=== PATIENT | male | born 1955 | race Caucasian/White ===

== ENCOUNTER 2016-06-24 06:06 | Emergency (ER) | payer MEDICAID ==
--- NOTE | 2016-06-24 08:04 | ER NURSING DOCUMENTATION ---
Nurse's Notes [facility] Name:Sushil Jensen Age:61 yrs Sex:Male :1955 Arrival Date:06/24/2016 Time:06:06 Bed1 Private MD: Diagnosis:Acute Back Pain Presentation: 06/24 06:23 Presenting complaint: Patient states: pt wants dressing change from back surgery 2 days lb ago. Transition of care: Home. Notified ED Physician of Dr. Cadena notified. 06:23 Acuity: WHITNEY 5 lb 06:23 Method Of Arrival: Walk In Triage Assessment: 06:28 General: Appears in no apparent distress, Behavior is appropriate for age. Pain: Denies lb pain. Historical: - Allergies: No known drug Allergies; - Home Meds: 1. Soma Oral 2. Percocet Oral - PMHx: None; - PSHx: back; - Tetanus: unknown. - Ebola Screening: : Patient denies exposure to infectious person. Patient denies travel to an Ebola-affected area in the 21 days before illness onset. . - Immunization history: Flu Vaccine None. - Social history: Smoking status: Patient states was never smoker of tobacco. Patient/guardian denies using alcohol. Screenin:29 Infectious Disease Risk None. Abuse screen: Denies threats or abuse. Denies injuries lb from another. Nutritional screening: No deficits noted. Assessment: 06:29 See Triage Assessment done by same RN. lb 07:[address] Vital Signs: 06:28 BP 121 / 89; Pulse 120; Resp 18; Temp 97.9; Pulse Ox 91% on R/A; Weight 68.04 kg; lb Height 5 ft. 9 in. (175.26 cm); Pain 0/10; 06:28 Body Mass Index 22.15 (68.04 kg, 175.26 cm) lb ED Course: 06:09 Patient arrived in ED. ma1 06:23 Jerri Nguyễn is Primary Nurse. lb 06:27 Triage completed. lb 06:29 Valuables Remains with patient. lb 06:34 Pankaj Cadena MD is Attending Physician. tl1 07:07 Diet: Patient given water. st 08:02 Wound care located on back was dressed with ABD pads, xeroforme. st Administered Medications: No medications were administered Outcome: 07:27 Discharge ordered by . tl1 08:02 Discharged to home ambulatory. st 08:02 Condition: stable 08:02 Discharge instructions given to patient, Instructed on discharge instructions, follow up and referral plans. medication usage, Prescriptions given X 1. 08:03 Patient left the ED. Signatures: Yoana Kaur, RN RN Pankaj Mendiola MD MD tl1 Jerri Nguyễn Melissa hi1
--- NOTE | 2016-06-24 08:04 | ER PHYSICIAN DOCUMENTATION ---
Physician Documentation [facility] Name:Sushil Jensen Age:61 yrs Sex:Male :1955 Arrival Date:06/24/2016 Time:06:06 Bed1 Private MD: Pankaj Guevara Disposition: 06/24/16 07:27 Discharged to Home/Self Care. Impression: Acute Back Pain. - Condition is Good. - Prescriptions for Zofran 4 mg Oral - take 1-2 tablet by ORAL route every 4-6 hours As needed; 10 tablet. - Medical Reconciliation form form. - Follow up: Private Physician; When: 2 - 3 days; Reason: Recheck today's complaints, Continuance of care. - Problem is new. - Symptoms are unchanged. - Notes: Call Dr Palomares to arrange follow up Sunday, 2 days from now. Try to leave the bandage in place until you see him in clinic in 2 days. Return if you soak the dressing or if you develop fever or shaking chills. HPI: 06/24 06:43 This 61 yrs old Male presents to ER via Walk In with complaints of fluid tl1 leaking from multilevel lumbar fusion done 2 days ago.. 06:43 The patient presents with pain that is acute. The symptoms are located in the low back. tl1 Onset: The symptoms/episode began/occurred gradually, 2 day(s) ago. Associated signs and symptoms: Pertinent negatives: fever. 07:44 The fusion was at L3,4,5 2 days ago. A new type of plastic incisional closure device tl1 was used. The incision has been leaking a moderate amount of clearish red fluid. I spoke with his surgeon, Dr Cr Palomares : Work: [phone] and who reports that the surgery went well and was not anywhere near the dura.. Historical: - Allergies: No known drug Allergies; - Home Meds: 1. Soma Oral 2. Percocet Oral - PMHx: None; - PSHx: back; - Tetanus: unknown. - Ebola Screening: : Patient denies exposure to infectious person. Patient denies travel to an Ebola-affected area in the 21 days before illness onset. . - Immunization history: Flu Vaccine None. - Social history: Smoking status: Patient states was never smoker of tobacco. Patient/guardian denies using alcohol. ROS: 06:46 Back: Positive for pain at rest, pain with movement, leaking of thin bloody fluid. tl1 Exam: 06:47 Constitutional: The patient appears alert, awake, uncomfortable. tl1 06:47 Head/face: Exam is negative for acute changes. 06:47 Cardiovascular: Rate: normal. 06:47 Respiratory: Respirations: normal. 06:47 Back: pain, of the lumbar area, ROM is not tested, normal spinal alignment noted, CVA tenderness, is absent, vertebral tenderness, is appreciated at L2, L3 and L4. Vital Signs: 06:28 BP 121 / 89; Pulse 120; Resp 18; Temp 97.9; Pulse Ox 91% on R/A; Weight 68.04 kg; lb Height 5 ft. 9 in. (175.26 cm); Pain 0/10; 06:28 Body Mass Index 22.15 (68.04 kg, 175.26 cm) lb MDM: 06:35 Patient medically screened. tl1 06/24 08:03 Order name: Wound Care; Complete Time: 08:03 st Dispensed Medications: No medications were administered Signatures: Yoana Kaur RN RN st Leigh, Tom, MD MD tl1 Jerri Nguyễn
== END 2016-06-24 08:03 | disposition home or self-care (01) ==
LOC: ER 06:06
DX: Z48.01 Encounter for change or removal of surgical wound dressing (principal); Z98.1 Arthrodesis status; Z98.890 Other specified postprocedural states; M54.5 Low back pain; Z79.899 Other long term (current) drug therapy
CPT/HCPCS: 99283

== ENCOUNTER 2016-06-24 22:52 | Emergency (ER) | payer MEDICAID ==
[2016-06-24 23:40] LABS: BASOPHILS 0.5 % (0.0-2.0); EOSINOPHILS 1.4 % (0.0-6.0); EOSINOPHILS# 0.1 X 10^3uL (0.0-0.4); HEMATOCRIT 34.1 % (42.0-54.0); HEMOGLOBIN 11.8 g/dL (14.0-18.0); LYMPHOCYTES 24.1 % (20.0-40.0); LYMPHOCYTES# 1.6 X 10^3uL (0.8-3.8); MEAN CELL VOLUME 92.7 fL (80.0-100.0); MEAN CORPUS. HGB CONCENTRATION 34.5 g/dL (32.0-36.0); MEAN PLATELET VOLUME 8.6 fL (7.4-10.4); MONOCYTES 9.5 % (2.0-10.0); MONOCYTES# 0.6 X 10^3uL (0.2-1.0); NEUTROPHILS 64.5 % (54.0-75.0); NEUTROPHILS# 4.2 X 10^3uL (2.6-6.7); PLATELET COUNT 139 X 10^3uL (130-440); RED BLOOD COUNT 3.68 X 10^6uL (4.20-6.10); RED CELL DISTRIBUTION WIDTH 11.9 % (11.5-14.5); WHITE BLOOD COUNT 6.5 X 10^3uL (3.9-10.7)
[2016-06-24 23:41] LABS: BLOOD UREA NITROGEN 16 mg/dL (9-20); CALCIUM 8.5 mg/dL (8.4-10.2); CHLORIDE 96 mmol/L (98-107); CREATININE 0.7 mg/dL (0.7-1.3); EST GLOMERULAR FILTRATION RATE > 60 mL/min; GLUCOSE 125 mg/dL (70-100); SODIUM 128 mmol/L (137-145)
[2016-06-24 23:56] LABS: C-REACTIVE PROTEIN 11.2 mg/L (<10.0)
[2016-06-25 00:07] LABS: ERYTHROCYTE SEDIMENTATION RATE 27 MM/HR (0-10)
--- NOTE | 2016-06-25 00:09 | ER NURSING DOCUMENTATION ---
Nurse's Notes [facility] Name:Sushil Jensen Age:61 yrs Sex:Male :1955 Arrival Date:06/24/2016 Time:22:52 Bed1 Private MD: Diagnosis:Wound Recheck;Hyponatremia Presentation: 06/24 23:00 Presenting complaint: Patient states: drainage from back incision s/p surgery 2 days lb ago. Transition of care: Home. Notified ED Physician of Dr. Cadena notified. 23:00 Acuity: WHITNEY 4 lb 23:00 Method Of Arrival: Walk In lb Triage Assessment: 23:02 General: Appears in no apparent distress, Behavior is appropriate for age, pleasant. lb Pain: Complains of pain in lumbar area Pain does not radiate. Pain currently is 5 out of 10 on a pain scale. Historical: - Allergies: No known drug Allergies; - Home Meds: 1. Soma Oral 2. Percocet Oral - PSHx: back; - Tetanus: < 10 years. - Ebola Screening: : Patient denies exposure to infectious person. Patient denies travel to an Ebola-affected area in the 21 days before illness onset. . - Immunization history: Unable to Obtain. - Social history: Smoking status: Patient states was never smoker of tobacco. Patient/guardian denies using alcohol. - Code Status:: Full code. Screenin:03 Infectious Disease Risk None. Abuse screen: Denies threats or abuse. Denies injuries lb from another. Nutritional screening: No deficits noted. Assessment: 23:03 See Triage Assessment done by same RN. lb Vital Signs: 23:02 BP 128 / 88; Pulse 112; Resp 16; Temp 98.2; Pulse Ox 91% on R/A; Pain 5/10; lb ED Course: 22:53 Patient arrived in ED. em3 23:00 Jerri Nguyễn is Primary Nurse. lb 23:01 Triage completed. lb 23:03 Valuables Remains with patient Patient has correct armband on for positive lb identification. Placed in gown. 23:03 Oxygen Oxygen administration via nasal cannula @ 2L/min. em3 23:04 Pankaj Cadena MD is Attending Physician. tl1 06/25 00:07 Dressings: ABD pad X 2;. lb Administered Medications: No medications were administered Outcome: 06/24 23:20 Discharge ordered by . tl1 04/16 00:07 Discharged to home ambulatory. arie Condition: good Discharge Assessment: Patient awake, alert and oriented x 3. No cognitive and/or functional deficits noted. Patient verbalized understanding of disposition instructions. Instructed on discharge instructions, follow up and referral plans. 00:08 Patient left the ED. lb Signatures: Meng Stewart em3 Pankaj Cadena MD MD tl1 Jerri Nguyễn
--- NOTE | 2016-06-25 00:09 | ER PHYSICIAN DOCUMENTATION ---
Physician Documentation [facility] Name:Sushil Jensen Age:61 yrs Sex:Male :1955 Arrival Date:06/24/2016 Time:22:52 Bed1 Private MD: Pankaj Guevara Disposition: 06/25 00:20 Chart complete. tl1 Disposition: 06/24/16 23:20 Discharged to Home/Self Care. Impression: Wound Recheck, Hyponatremia. - Condition is Good. - Discharge Instructions: HYPONATREMIA, WOUND CHECK, Lac F/U (No Infection). - Medical Reconciliation form form. - Follow up: Private Physician; When: 1 - 2 days; Reason: Recheck today's complaints, Continuance of care. - Problem is new. - Symptoms have worsened. - Notes: Follow up as scheduled with Dr Palomares on Sunday, 2 days from now. Go to the emergency department at [facility] for fever over 101 degrees, shaking chills, worsening pain, increasing incisional drainage, or if worse in any way. HPI: 06/24 23:15 This 61 yrs old Male presents to ER via Walk In with complaints of Wound tl1 Recheck. 23:15 He had a fusion of L3,4,5 3 days ago on 06/23. I saw him this AM for what seemed tl1 like a lot of incisional drainage. The incision looked OK otherwise and I spole with his surgeon, Dr Palomares, who will see him on Sunday, 2 days from now. He says he felt warm and that his temperature was 100.0. He denied any shaking chills or sweats. He thinks the seepage of fluid from his incision is decreasing. He just wants another check of the incision.. Historical: - Allergies: No known drug Allergies; - Home Meds: 1. Soma Oral 2. Percocet Oral - PSHx: back; - Tetanus: < 10 years. - Ebola Screening: : Patient denies exposure to infectious person. Patient denies travel to an Ebola-affected area in the 21 days before illness onset. . - Immunization history: Unable to Obtain. - Social history: Smoking status: Patient states was never smoker of tobacco. Patient/guardian denies using alcohol. - Code Status:: Full code. ROS: 23:30 Skin: Negative for erythema, swelling. tl1 23:30 All other systems are negative. Exam: 23:30 Constitutional: This is a well developed, well nourished patient who is awake, alert, tl1 and in no acute distress. 23:30 Cardiovascular: Rate: normal. 23:30 Respiratory: Respirations: normal. 23:30 Skin: abscess, not appreciated, cellulitis, is not appreciated, Fluid drainage from incision much less than earlier. Vital Signs: 23:02 BP 128 / 88; Pulse 112; Resp 16; Temp 98.2; Pulse Ox 91% on R/A; Pain 5/10; lb MDM: 23:04 Patient medically screened. tl1 23:30 Data reviewed: vital signs, nurses notes, and as a result, I will discharge patient. tl1 Counseling: I had a detailed discussion with the patient and/or guardian regarding: the historical points, exam findings, and any diagnostic results supporting the discharge/admit diagnosis, the need for outpatient follow up, to return to the emergency department if symptoms worsen or persist or if there are any questions or concerns that arise at home. 06/24 23:42 Order name: CBC AUTO DIF, MDIF/RMOR IF IND; Complete Time: 12:14 EDMS 06/24 23:56 Interpretation: WHITE BLOOD COUNT 6.5; HEMOGLOBIN 11.8; HEMATOCRIT 34.1; PLATELET COUNT tl1 139. 06/24 23:43 Order name: BASIC METABOLIC PANEL; Complete Time: 12:14 EDMS 06/24 23:56 Interpretation: SODIUM 128; POTASSIUM 4.0; CHLORIDE 96; CARBON DIOXIDE 26; GLUCOSE 125; tl1 BLOOD UREA NITROGEN 16; CREATININE 0.7. 06/24 23:56 Order name: C-REACTIVE PROTEIN; Complete Time: 12:14 EDMS 06/24 23:57 Interpretation: Abnormal: C-REACTIVE PROTEIN 11.2. tl1 06/25 00:07 Order name: ERYTHROCYTE SEDIMENTATION RATE; Complete Time: 12:14 EDMS 06/26 12:13 Interpretation: Abnormal: ERYTHROCYTE SEDIMENTATION RATE 27. tl1 06/24 23:17 Order name: Dressing - Wound; Complete Time: 23:53 tl1 Dispensed Medications: No medications were administered Signatures: Pankaj Cadena MD MD tl1 Jerri Nguyễn
== END 2016-06-25 00:09 | disposition home or self-care (01) ==
LOC: ER 22:52
DX: Z48.01 Encounter for change or removal of surgical wound dressing (principal); Z98.1 Arthrodesis status; R50.9 Fever, unspecified; M54.5 Low back pain; Z79.899 Other long term (current) drug therapy
CPT/HCPCS: 36415; 80048; 84443; 85025; 85651; 86140; 99284

== ENCOUNTER 2016-08-10 09:16 | Emergency (ER) | payer MEDICAID ==
--- NOTE | 2016-08-10 09:57 | ER NURSING DOCUMENTATION ---
Nurse's Notes [facility] Name:Sushil Jensen Age:61 yrs Sex:Male :1955 Arrival Date:08/10/2016 Time:09:16 Bed1 Private MD:Cr Palomares Diagnosis: Presentation: 08/10 09:28 Acuity: WHITNEY 5 st 09:52 Presenting complaint: Patient states: pt needs to speak to a Dr. about a med refill and st trouble with Surgeon. Assessment: 09:55 General: pt does not want to wait and will check back latter. Pt feels that he is st wasting his time sitting here when he lives across the street and can come back when we are not buisy.. ED Course: 09:18 Patient arrived in ED. ama 09:18 Cr Palomares is Private Physician. ama 09:28 Yoana Kaur RN is Primary Nurse. st 09:[address] 09:49 Rajesh Blanco MD is Attending Physician. sc Administered Medications: 09:39 CANCELLED (wrong pt): Zofran 4 mg IVP once over [address] 09:39 CANCELLED (wrong pt): NS 0.9% 1000 ml IV at bolus once st Outcome: 09:55 Eloped LWOT - Patient left after Triage and/or MSE Due to wait st 09:56 Patient [address] the ED. st Signatures: Yoana Kaur RN RN st Rajesh Blanco MD MD sc Averdick, Andrew, Reg Reg ama
== END 2016-08-10 09:57 | disposition home or self-care (01) ==
LOC: ER 09:16
DX: Z53.21 Procedure and treatment not carried out due to patient leaving prior to being seen by health care provider (principal)
CPT/HCPCS: 99281